=== PATIENT | female | born 1955 | race Caucasian/White ===

== ENCOUNTER → 2016-12-13 | Outpatient (CLI) | payer OTHER ==
--- NOTE | 2016-12-13 14:37 | DIAGNOSTIC IMAGING REPORT ---
PROCEDURE: US ART LOWER EXT DOPPLER-BILAT INDICATION: BILATERAL LE CLAUDICATION TECHNIQUE: Color Doppler duplex imaging of the bilateral lower extremity arterial system was performed. COMPARISON: None. FINDINGS: Right leg: Ankle-brachial indices: Resting posterior tibial 1.1, resting dorsalis pedis 1.0. Postexercise posterior tibial 1.1, postexercise dorsalis pedis 0.9. VESSELS/ WAVEFORMS: There is triphasic arterial inflow and triphasic flow in the mid superficial femoral artery with biphasic flow seen throughout the remainder of the right lower extremity arterial system. PEAK SYSTOLIC VELOCITIES: External iliac: 80 cm/second. Common femoral artery: 93 cm/second. Profunda femoral artery: 58 cm/second. Proximal superficial femoral artery: 71 cm/second. Mid superficial femoral artery: 74 cm/second. Distal superficial femoral artery: 63 cm/second. Popliteal artery: 32 cm/second. Proximal anterior tibial artery: 42 cm/second. Peroneal artery: 66 cm/second. Distal posterior tibial artery: 55 cm/second. Dorsalis pedis artery: 31 cm/second. Left leg: Ankle-brachial indices: Resting posterior tibial 1.2, resting dorsalis pedis 1.1. Postexercise posterior tibial 1.2, postexercise dorsalis pedis 0.8. VESSELS/ WAVEFORMS: Triphasic arterial inflow and biphasic flow throughout the rest of the left lower extremity. PEAK SYSTOLIC VELOCITIES: External iliac: 103 cm/second. Common femoral artery: 86 cm/second. Profunda femoral artery: 50 cm/second. Proximal superficial femoral artery: 72 cm/second. Mid superficial femoral artery: 66 cm/second. Distal superficial femoral artery: 57 cm/second. Popliteal artery: 36 cm/second. Proximal posterior tibial artery: 75 cm/second. Proximal anterior tibial artery: 42 cm/second. Peroneal artery: Not seen cm/second. Distal posterior tibial artery: 55 cm/second. Dorsalis pedis artery: 39 cm/second. IMPRESSION: 1. Given ankle-brachial indices, mild exercise-induced arterial insufficiency in the dorsalis pedis artery bilaterally, left worse than right. 2. No other sonographic evidence of focal arterial stenosis in either lower extremity. 3. Biphasic arterial wave forms bilaterally suggestive of diffuse mild atherosclerosis.
== END ==
LOC: US SRH 07:57
DX: I70.213 Atherosclerosis of native arteries of extremities with intermittent claudication, bilateral legs (principal)

== ENCOUNTER 2016-12-31 09:01 | Outpatient (CLI) | payer OTHER ==
--- NOTE | 2016-12-31 10:21 | DIAGNOSTIC IMAGING REPORT ---
PROCEDURE: US BILATERAL CAROTID DOPPLER INDICATION: PAD TECHNIQUE: Color Doppler duplex imaging of the carotid and vertebral vessels. COMPARISON: None. FINDINGS: Right carotid system: No significant stenosis visualized. The waveforms are normal. Left carotid system: No significant stenosis visualized. The waveforms are normal. Vertebral System: Antegrade vertebral artery flow bilaterally. Right common carotid artery peak systolic velocity 94 cm/second. Right internal carotid artery peak systolic velocity 104 cm/second. Right external carotid artery peak systolic velocity 66 cm/second. Right ihnnioth-bp-wblxcu carotid artery ratio 1.4 Right vertebral artery peak systolic velocity 40.6 cm/second. Left common carotid artery peak systolic velocity 96 cm/second. Left internal carotid artery peak systolic velocity 68 cm/second. Left external carotid artery peak systolic velocity 57.8 cm/second. Left fldjmtac-ow-qvreeq carotid artery ratio 1.0 Left vertebral artery peak systolic velocity 42.7 cm/second. IMPRESSION: 1. No hemodynamically significant stenosis in either carotid system. 2. Antegrade vertebral artery flow bilaterally. Velocity criteria are extrapolated from diameter data as defined by the Society of Radiologists in Ultrasound Consensus Conference, Radiology 2003; 229; 340-346.
--- NOTE | 2016-12-31 10:21 | DIAGNOSTIC IMAGING REPORT ---
PROCEDURE: US BILATERAL CAROTID DOPPLER INDICATION: PAD TECHNIQUE: Color Doppler duplex imaging of the carotid and vertebral vessels. COMPARISON: None. FINDINGS: Right carotid system: No significant stenosis visualized. The waveforms are normal. Left carotid system: No significant stenosis visualized. The waveforms are normal. Vertebral System: Antegrade vertebral artery flow bilaterally. Right common carotid artery peak systolic velocity 94 cm/second. Right internal carotid artery peak systolic velocity 104 cm/second. Right external carotid artery peak systolic velocity 66 cm/second. Right ucztvnjw-vp-ircyjw carotid artery ratio 1.4 Right vertebral artery peak systolic velocity 40.6 cm/second. Left common carotid artery peak systolic velocity 96 cm/second. Left internal carotid artery peak systolic velocity 68 cm/second. Left external carotid artery peak systolic velocity 57.8 cm/second. Left onimhhbd-ss-zmncyh carotid artery ratio 1.0 Left vertebral artery peak systolic velocity 42.7 cm/second. IMPRESSION: 1. No hemodynamically significant stenosis in either carotid system. 2. Antegrade vertebral artery flow bilaterally. Velocity criteria are extrapolated from diameter data as defined by the Society of Radiologists in Ultrasound Consensus Conference, Radiology 2003; 229; 340-346.
== END 2016-12-31 23:00 ==
LOC: US SRH 09:01
DX: I73.9 Peripheral vascular disease, unspecified (principal)